=== PATIENT | female | born 1955 | race Caucasian/White ===

== ENCOUNTER 2016-09-25 20:08 | Emergency (ER) | payer OTHER ==
[~2016-09-25] VITALS: Ht 152.4 cm; Wt 51.0 kg
[2016-09-25 20:14] VITALS: Ht 152.4 cm; Wt 51.0 kg
[2016-09-25 21:36] LABS: URINE BLOOD (Dip) POC 2+ (NEGATIVE)
[2016-09-25] MEDS ORDERED: PHEN-538 PO (21:46)
[2016-09-25] MEDS ORDERED: CEPH-443 PO (21:46)
[2016-09-25] MEDS ORDERED: ACET500C5 PO (21:46)
--- NOTE | 2016-09-25 21:49 | ERD ---
ER Documentation Chief Complaint Date/Time DATE: 09/25/16 TIME: 21:48 Chief Complaint painful urination x 4 days HPI 61-year-old female complains of dysuria and suprapubic pain for last 4 days. Denies fevers, vomiting, flank pain, upper abdominal pain. She has no cough, shortness of breath or chest pain. ROS All systems reviewed and are negative except as per history of present illness. Medications Home Meds Active Scripts Acetaminophen* (Tylophen*) 500 Mg Capsule, 1 CAP PO Q6H Y for PAIN AND OR ELEVATED TEMP, #20 CAP Prov:PADILLA AGUILAR MD 09/25/16 Phenazopyridine Hcl* (Pyridium*) 200 Mg Tab, 200 MG PO TID Y for URINARY PAIN, # 6 TAB Prov:PADILLA AGUILAR MD 09/25/16 Cephalexin* (Keflex*) 500 Mg Capsule, 500 MG PO QID for 5 Days, CAP Prov:PADILLA AGUILAR MD 09/25/16 Allergies Allergies: Coded Allergies: No Known Allergy (Unverified , 09/25/16) PMhx/Soc History of Surgery: Yes (TUBAL LIGATION) Anesthesia Reaction: No Hx Neurological Disorder: No Hx Respiratory Disorders: No Hx Cardiac Disorders: No Hx Psychiatric Problems: No Hx Miscellaneous Medical Probl: No Hx Alcohol Use: No Hx Substance Use: No Hx Tobacco Use: No Smoking Status: Never smoker Physical Exam Vitals Vital Signs Date Time Temp Pulse Resp B/P Pulse Ox O2 Delivery O2 Flow Rate FiO2 09/25/16 20:14 97.8 75 20 145/61 99 Physical Exam Const: [] Alert, [id number] per Head: Atraumatic Eyes: Normal Conjunctiva ENT: Normal External Ears, Nose and Mouth. Neck: Full range of motion..~ No meningismus. Resp: Clear to auscultation bilaterally Cardio: Regular rate and rhythm, no murmurs Abd: Soft, minimal suprapubic tenderness. No rebound tenderness at McBurney' s point no Alcantar sign, non distended. Normal bowel sounds Skin: No petechiae or rashes Back: No midline or flank tenderness Ext: No cyanosis, or edema Neur: Awake and alert Psych: Normal Mood and Affect Results 24 hrs Laboratory Tests Test 09/25/16 21:35 Bedside Urine pH (LAB) 7.0 Bedside Urine Protein (LAB) Negative Bedside Urine Glucose (UA) Negative Bedside Urine Ketones (LAB) Negative Bedside Urine Blood 2+ Bedside Urine Nitrite (LAB) Negative Bedside Urine Leukocyte Esterase (L 1+ Current Medications Medications (Trade) Dose Ordered Sig/Jean Route PRN Reason Start Time Stop Time Status Last Admin Dose Admin Cephalexin (Keflex) 500 mg ONCE ONCE PO 09/25/16 22:00 09/25/16 22:01 DC Acetaminophen (Tylenol Tab) 650 mg ONCE ONCE PO 09/25/16 22:00 09/25/16 22:01 DC Procedures/MDM Patient is positive hemoglobin leukocytes. Patient has had symptoms of acute cystitis without evidence of acute abdomen, appendicitis, pyelonephritis. She will be treated with Keflex and Tylenol here and Keflex were given Tylenol at home. The patient was stable with no new complaints during the ER course. Clinically, there is no current evidence to suggest meningitis, sepsis, acute abdomen, pneumonia, acute coronary syndrome, pulmonary embolism, or any other emergent condition appearing to require further evaluation or hospitalization. The patient should certainly return for any new or worsening symptoms per the aftercare instructions. They should otherwise follow-up with her primary care doctor for reevaluation this week. Departure Diagnosis: Primary Impression: UTI (urinary tract infection) Urinary tract infection type: acute cystitis Hematuria presence: without hematuria Qualified Code: N30.00 - Acute cystitis without hematuria Condition: Stable Patient Instructions: Understanding Urinary Tract Infections (UTIs) Additional Instructions: QUINN MUCHO AGUA Cheque otro vez con momin doctor primario en el proximo riddle or regresa para mas o nueva simptomas. PADILLA AGUILAR MD Sep 25, 2016 21:49
[2016-09-25] MEDS ORDERED: CEPHALEXIN 500 MG CAP PO ONE (22:00)
[2016-09-25] MEDS ORDERED: ACETAMINOPHEN 325 MG TAB PO ONE (22:00)
== END 2016-09-25 22:07 | disposition home or self-care (01) ==
LOC: FTE 20:08
DX: N30.00 Acute cystitis without hematuria (principal)
CPT/HCPCS: 81003; Z7502; Z7610; 99283